=== PATIENT | female | born 1985 | race Caucasian/White ===

== ENCOUNTER 2016-10-24 23:11 | Emergency (ER) | payer SELFPAY ==
[~2016-10-24] VITALS: Ht 170.2 cm; Wt 69.0 kg
[2016-10-24 23:18] VITALS: Ht 170.2 cm; Wt 69.0 kg
--- NOTE | 2016-10-25 02:01 | ERD ---
ER Documentation Chief Complaint Date/Time DATE: 10/25/16 TIME: 01:57 Chief Complaint fish bone stuck in throat since 2099, no respiratory distress HPI 31-year-old female patient with no significant past medical history presents to the ED complaining of a fish bones being stuck to the left side of her tonsil. Reports that this happened yesterday at 9 PM. Reports that she was eating salmon. States that she tried drinking and eating bread and banana to try to remove the fishbone. Denies any fever, chills, abdominal pain, nausea, vomiting , shortness of breath, cough, neck stiffness, neck pain. ROS All systems reviewed and are negative except as per history of present illness. Allergies Allergies: Coded Allergies: No Known Drug Allergies (Verified Allergy, Unknown, 10/24/16) PMhx/Soc History of Surgery: No Anesthesia Reaction: No Hx Neurological Disorder: No Hx Respiratory Disorders: No Hx Cardiac Disorders: No Hx Psychiatric Problems: No Hx Alcohol Use: No Hx Substance Use: No Hx Tobacco Use: No Smoking Status: Never smoker Physical Exam Vitals Vital Signs Date Time Temp Pulse Resp B/P Pulse Ox O2 Delivery O2 Flow Rate FiO2 10/24/16 23:18 98.0 59 20 112/69 97 Physical Exam Const: [id number], well-nourished. In no acute distress. Head: Atraumatic, normocephalic Eyes: Normal Conjunctiva without injection. No purulent discharge. PERRL. EOMI ENT: Normal external ear. Ear canal without erythema. Tympanic membrane pearly jovel without effusion or bulging. Nasal canal clear with normal turbinates. Moist oropharynx without tonsillar exudates. 3 cm clear white linear thin fish bone stuck on the left inferior to midportion of the tonsil. Non-erythematous pharynx. Uvula midline. No drooling. No trismus. Neck: Full range of motion. No meningismus. No cervical lymphadenopathy. Resp: Clear to auscultation bilaterally. No wheezing, rhonchi, rales, or crackles. No accessory muscle use. No retractions. Cardio: Regular rate and rhythm. No murmurs, rubs or gallops. Abd: Soft, non tender, non distended. Normal bowel sounds. No palpable masses. No rebound tenderness. No guarding. Skin: No petechiae or rashes Back: No midline tenderness. No CVA tenderness. Ext: No cyanosis, or edema. Neur: Awake and alert. Psych: Normal Mood and Affect Procedures/MDM This is a 31-year-old female with no significant past medical history presents to the ED complaining of a patient bone being stuck to her left tonsil since 9 PM yesterday. Patient is afebrile and nontoxic-appearing. Patient has normal vital signs. At this time my supervising physician, Dr. Quiñones was consulted. We both agreed to consult the ears nose throat specialist, Dr. Galo. Dr. Galo stated that he will come in to the ED to remove the fishbone at this time. Dr. Galo removed the fish bone with alligator forceps without any complications. Low suspicion for Kg's angina, foreign body aspiration, esophageal tear, retropharyngeal abscess, peritonsillar abscess, for strep pharyngitis, or other emergent conditions. Follow up with primary care physician in 1-2 days. Instructed patient to return to the ED sooner for any worsening symptoms. Patient's questions were answered. Patient understood and agreed with discharge plan. Patient discharged stable. Departure Diagnosis: Primary Impression: Foreign body of tonsil Encounter type: initial encounter Qualified Code: T17.208A - Foreign body of tonsil, initial encounter Condition: Stable Patient Instructions: Pharyngeal Foreign Body, Removed Referrals: [facility] YOU HAVE RECEIVED A MEDICAL SCREENING EXAM AND THE RESULTS INDICATE THAT YOU DO NOT HAVE A CONDITION THAT REQUIRES URGENT TREATMENT IN THE EMERGENCY DEPARTMENT. FURTHER EVALUATION AND TREATMENT OF YOUR CONDITION CAN WAIT UNTIL YOU ARE SEEN IN YOUR DOCTORS OFFICE WITHIN THE NEXT 1-2 DAYS. IT IS YOUR RESPONSIBILITY TO MAKE AN APPOINTMENT FOR FOLOW-UP CARE. IF YOU HAVE A PRIMARY DOCTOR --you should call your primary doctor and schedule an appointment IF YOU DO NOT HAVE A PRIMARY DOCTOR YOU CAN CALL OUR PHYSICIAN REFERRAL HOTLINE AT IF YOU CAN NOT AFFORD TO SEE A PHYSICIAN YOU CAN CHOSE FROM THE FOLLOWING [facility] [address] [facility] [address] [facility] [facility] [address] [facility] [address] [facility] [address] [facility]. [facility] [address] [facility]. [facility] YOU HAVE RECEIVED A MEDICAL SCREENING EXAM AND THE RESULTS INDICATE THAT YOU DO NOT HAVE A CONDITION THAT REQUIRES URGENT TREATMENT IN THE EMERGENCY DEPARTMENT. FURTHER EVALUATION AND TREATMENT OF YOUR CONDITION CAN WAIT UNTIL YOU ARE SEEN IN YOUR DOCTORS OFFICE WITHIN THE NEXT 1-2 DAYS. IT IS YOUR RESPONSIBILITY TO MAKE AN APPOINTMENT FOR FOLOW-UP CARE. IF YOU HAVE A PRIMARY DOCTOR --you should call your primary doctor and schedule and appointment IF YOU DO NOT HAVE A PRIMARY DOCTOR YOU CAN CALL OUR PHYSICIAN REFERRAL HOTLINE AT . IF YOU CAN NOT AFFORD TO SEE A PHYSICIAN YOU CAN CHOSE FROM THE FOLLOWING [facility] INSTITUTIONS: [facility] [address] [place] [address] [facility] [address] [place] [address] [facility] + [facility] [address] [place] [address] [facility] URGENT CARE/SPECIALTIES Additional Instructions: Call your primary care doctor TOMORROW for an appointment during the next 2-3 days.See the doctor sooner or return here if your condition worsens before your appointment time. NATASHA MCNEILL PA-C Oct 25, 2016 02:01
[2016-10-25 02:23] VITALS: PULSE 68; RESP 18; TEMP 98.2
== END 2016-10-25 02:27 | disposition home or self-care (01) ==
LOC: FTE 23:11
DX: T17.220A Food in pharynx causing asphyxiation, initial encounter (principal); X58.XXXA Exposure to other specified factors, initial encounter